=== PATIENT | female | born 1960 | race Native Hawaiian/Other Pacific Islander ===

== ENCOUNTER 2018-06-18 11:42 | Emergency (ER) | payer OTHER ==
[~2018-06-18] VITALS: Ht 152.4 cm; Wt 40.8 kg
[2018-06-18 11:48] VITALS: BP 145/99
--- NOTE | 2018-06-18 13:42 | NUR ---
For discharge- [facility] given home ambulatory stable
== END 2018-06-18 13:42 | disposition home or self-care (01) ==
LOC: ER 11:45
DX: L23.3 Allergic contact dermatitis due to drugs in contact with skin (principal); M79.674 Pain in right toe(s); Z88.0 Allergy status to penicillin
CPT/HCPCS: 73630; 99283; A4606; Z7610